=== PATIENT | female | born 1990 | race Caucasian/White ===

== ENCOUNTER 2017-06-05 16:20 | Inpatient (IN) | payer OTHER ==
[~2017-06-05] VITALS: Ht 167.6 cm; Wt 52.2 kg
--- NOTE | ~2017-06-05 | H ---
[facility] [place] [address] HISTORY AND PHYSICAL Name: ELIZABETH KAM Room #: 430-P [facility] IN M.R.#: [id number] Admission: 06/05/17 Attend Phys: Gato Chappell DO Discharge: 06/07/17 Date of : 89 Report #: [id number] THIS REPORT FOR: //name// CC: FELICIA physician/PCP Chris Chappell DATE OF SERVICE: 06/05/2017 ATTENDING PHYSICIAN: Gato Chappell DO. PRIMARY CARE PHYSICIAN: None. CHIEF COMPLAINT: Left buttock pain. HISTORY OF PRESENT ILLNESS: The patient is a 26-year-old female who came into the ER complaining of painful swollen area on her left buttock that began yesterday morning. She thought her symptoms were caused from a spider bite, although she never saw an actual spider. She said there was a black "pocket" that developed in the middle of the bite that started draining today. She said it was draining some pus and blood. The redness around the black area started spreading very rapidly today. She is not sure if she has been having any fevers, but denies any chills. The area of redness has become firm and very tender. She says to the point, she cannot even sit down on it because of the pain. She was having difficulty walking as well because of the location of the wound. She denies any history of MRSA or other skin source. She also had a rash that developed around her mouth yesterday morning. She does have a roommate who has developed a skin sore recently that they were not sure if it was a spider bite as well. PAST MEDICAL HISTORY: Depression and anxiety for which she does not take any current medications. PAST SURGICAL HISTORY: , bilateral tubal ligation, cholecystectomy and a LEEP procedure. ALLERGIES: Toradol "makes me crawl out of my skin." HOME MEDICATIONS: None. She used to take Lexapro and Lamictal, but then she has been off of these for about a year because she does not have a primary care provider. SOCIAL HISTORY: The patient smokes 1/4 of a pack of cigarettes per day. She has been smoking since she was a teenager. Denies any alcohol use. She does smoke marijuana occasionally. 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 Her last use was a few months ago. She says she no longer wants to use [facility] [address] [place] [address] HISTORY AND PHYSICAL Name: ELIZABETH KAM Room #: 430-P [facility] IN .R.#: [id number] Admission: 06/05/17 Attend Phys: Gato Chappell DO Discharge: 06/07/17 Date of : [birth year] Report #: [id number] this again. She is currently unemployed. She lives with a roommate. FAMILY HISTORY: Her father is alive with diabetes and her grandparents are diabetic, although a grandfather had throat and lung cancer and a grandmother had lung cancer. Her mother from an accidental overdose. REVIEW OF SYSTEMS: Twelve point review of systems was reviewed with the patient, otherwise negative unless stated in the HPI. PHYSICAL EXAMINATION: GENERAL: The patient is an alert female in no acute distress. VITAL SIGNS: Temperature is 36.7, heart rate 111, respirations 16, blood pressure is 110/78, oxygen 100% on room air. HEENT: PERRLA. Sclerae is nonicteric. Oral mucosa is pink and moist. She does have some scaly patches around her lips that are crusty appearing with some redness underneath. There are no open areas or drainage. NECK: Supple, no JVD noted. CARDIOVASCULAR: Normal S1, S2 with a slight 2/6 systolic murmur. RESPIRATORY: Breath sounds are clear bilaterally. No wheezing or rhonchi. Breathing is nonlabored. ABDOMEN: Soft, nontender, nondistended with positive bowel sounds. VASCULAR: No edema noted. Pedal pulses are 2+. NEUROLOGIC: The patient is alert and oriented x 3. Speech is clear. She is moving all extremities equally. No focal neuro deficits noted. SKIN: She does have multiple tattoos throughout her upper extremities. On her left gluteal area, there is an abscess in the left buttock that is indurated and exquisitely tender with palpation. The surrounding area of erythema is warm to the touch and extends into about 50% of her left gluteal region. Laterally, there is some small amount of bloody purulent drainage. LABORATORY DATA AND DIAGNOSTICS: WBC is 12.4, hemoglobin 12.2, platelets 291. Sodium 136, potassium 3.6, BUN 5, creatinine 0.6, glucose is 105. Lactate is 1.0. LFTs are within normal limits. CT of the abdomen and pelvis shows left-sided medial thigh and gluteal cellulitis without an abscess. A sinus tract or fistula is not identified on CT, but relatively insensitive for perirectal fistulas. There is gas within the bladder, this may be due to recent instrumentation or attempted catheterization of fistula cannot be excluded, correlate with clinical history or exam. ASSESSMENT AND PLAN: 1. Left gluteal abscess. This is already draining spontaneously. We will continue with vancomycin. Check wound culture and follow blood cultures. Continue with IV vancomycin, which was started in the ER. Surgery is consulted as she may possibly need an I and D. We will keep her n.p.o. after midnight due to possible surgery. 2. Anxiety and depression. This is stable. We will add Joseline monet. She has [facility] [address] [place] [address] HISTORY AND PHYSICAL Name: ELIZABETH KAM Room #: 430-P [facility] IN M.R.#: [id number] Admission: 06/05/17 Attend Phys: Gato Chappell DO Discharge: 06/07/17 Date of : 89 Report #: [id number] been off her other medications for over a year, so we will not resume them at this time. 3. Systemic inflammatory response syndrome. Lactate is normal. Her blood pressure has remained stable. Follow our cultures and continue with IV fluids. 4. Tobacco abuse. The patient has been advised to quit. We will provide a nicotine patch. 5. Deep venous thrombosis prophylaxis, place sequential compression devices. We will continue to follow the patient closely throughout the hospitalization and make changes based on clinical status. <ELECTRONICALLY SIGNED> By: MARSHALL Kay 06/07/17 0743 [id number] [id number] MARSHALL Kay /nt
--- NOTE | ~2017-06-05 | O ---
[facility] [place] [address] OPERATIVE REPORT Name: ELIZABETH KAM Room #: 430-P [facility] IN M.R.#: [id number] Admission: 06/05/17 Attend Phys: Gato Chappell DO Discharge: 06/07/17 Date of : 89 Report #: [id number] THIS REPORT FOR: //name// CC: FELICIA physician/PCP Chris Chappell DATE OF SERVICE: 06/06/2017 PREOPERATIVE DIAGNOSIS: Large left gluteal abscess (8 x 16 cm in greatest dimensions). POSTOPERATIVE DIAGNOSIS: Large left gluteal abscess (8 x 16 cm in greatest dimensions). OPERATIVE PROCEDURE: Incision and drainage with irrigation and packing of large 8 x 16 cm left gluteal abscess. SURGEON: Chris Forbes MD. STAKEHOLDER MANAGER: Anabel Osorio MS3. INDICATIONS: This 26-year-old lady reported to the emergency department that she thought that a fire ant had bitten her on the left gluteal region approximately 3-4 days ago. The erythema, pain and induration began to increase in the recent 24-48 hours. She sought medical attention. She now has a spontaneously draining 8 x 16 area of induration with abscess cavity of the left gluteal cheek. This requires incision and drainage with irrigation and packing in the operating room. DESCRIPTION OF PROCEDURE: The patient's status and condition and procedure were explained in detail to her at the bedside. She gave informed consent to proceed. She was brought to the operating room suite and had satisfactory induction of laryngeal mask general anesthesia. She was turned to a left lateral decubitus position. Sterile paint with Betadine was performed and 0.5% plain Naropin was injected circumferentially, 10 mL was utilized. A transverse radial-type incision of approximately 5 cm was then performed directly through the spontaneously draining abscess. The subcutaneous tissue was opened with blunt and sharp dissection. Finger dissection of the cavity extending inferiorly toward the left labia and ischiorectal fold was performed. Superior finger dissection of a cavity extending cephalad was also then evacuated. Aerobic and anaerobic cultures were obtained of the foul-smelling purulent drainage. Irrigation with saline was performed. The wound was then packed open with 5 yards of quarter-inch iodoform gauze soaked in the Naropin. The estimated blood loss was less than 5 mL. The patient tolerated the procedure [address] [address] OPERATIVE REPORT Name: ELIZABETH KAM Room #: 430-P [facility] IN [place].R.#: [id number] Admission: 06/05/17 Attend Phys: Gato Chappell DO Discharge: 06/07/17 Date of : 89 Report #: [id number] well. She had sterile dressings applied and she returned to the recovery room in stable and satisfactory condition. By: [id number] Chris Forbes MD, FACS /nt
--- NOTE | ~2017-06-05 | HC ---
[facility] [place] [address] CONSULTATION Name: ELIZABETH KAM Room #: 430-P [facility] IN M.R.#: [id number] Admission: 06/05/17 Attend Phys: Gato Chappell DO Discharge: 06/07/17 Date of : 89 Report #: [id number] THIS REPORT FOR: //name// CC: FELICIA physician/PCP Chris Chappell REASON FOR CONSULTATION: I was asked to evaluate concerning left gluteal abscess. HISTORY OF PRESENT ILLNESS: The patient is a 26-year-old who presents with a left buttock abscess. She states the onset was within the last 24 hours. Also, she has lesions around her mouth. She states onset 24 hours. No fever or chills. She has significant amount of tenderness. She feels that she had an insect bite initiated this issue. Did not see a spider or specific insect. The patient has a history of drug use and tobacco use. PAST MEDICAL HISTORY: Depression, anxiety, , tubal ligation, and cholecystectomy. MEDICATIONS: No known medications prior to her admission. ALLERGIES: To KETOROLAC. FAMILY HISTORY: Noncontributory. SOCIAL HISTORY: As noted above. REVIEW OF SYSTEMS: Denies any cardiopulmonary, GI, or complaints. PHYSICAL EXAMINATION: VITAL SIGNS: She is afebrile, hemodynamically stable. She had herpetic lesions involving her skin, around her mouth, nose, and lower lip area. MOUTH: Unremarkable. NECK: Supple. CHEST: Clear. HEART: Regular without murmur. ABDOMEN: Soft, nontender, no hepatosplenomegaly or mass. SKIN: Left gluteal abscess cavity evident with small amount of drainage. Very tender. Did not seem to track toward the anus. NEUROLOGIC: Normal. Multiple tattoos. LABORATORY STUDIES: Hemoglobin 10, WBCs 7.9, platelet count 246,000. Creatinine 0.6. Lactate 1. Liver function test normal. test negative. Urine drug screen pending. Urinalysis is pending. CT scan showed thickening of the tissues of the gluteus on the left. No definite abscess or fistulous tract. Small retroperitoneal periaortic lymph nodes felt likely [facility] [address] [place] [address] CONSULTATION Name: ELIZABETH KAM Room #: 430-P [facility] IN ..#: [id number] Admission: 06/05/17 Attend Phys: Gato Chappell DO Discharge: 06/07/17 Date of : 89 Report #: [id number] reactive, enlarged inguinal lymph nodes greatest on the left, scattered small air bubbles near the region of the cervix and vagina, some gas within the bladder. IMPRESSION: 1. Suspected oral herpes simplex. 2. Left gluteal abscess. 3. History of recreational drug use. PLAN: Recommend continuing broad antibiotic coverage pending culture results. We will use vancomycin and Zosyn. I have discussed with general surgery, he will obtain cultures at the time of surgery. I will screen for MRSA. Also, check bloodborne pathogens and STD screening. Add Valtrex for her oral herpes lesions. <ELECTRONICALLY SIGNED> By: Suleiman Gerard MD 06/07/17 0823 1543 1623 Suleiman Gerard MD /nt
[2017-06-05 16:22] VITALS: BP 110/78
[2017-06-05 18:16] LABS: ABSOLUTE NEUTROPHILS 9.9 thou/uL (1.4-8.2); BASOPHILS 0.6 % (0.0-2.0); EOSINOPHILS 1.2 % (0.0-3.0); HEMATOCRIT 36.2 % (37.0-47.0); HEMOGLOBIN 12.2 gm/dL (12.0-15.0); LYMPHOCYTES 12.5 % (24.0-44.0); MCH 28.6 pg (26.0-34.0); MCHC 33.8 g/dL (28.0-37.0); MCV 84.4 fL (80.0-100.0); MONOCYTES 5.4 % (1.0-8.0); PLATELET COUNT 291 thou/uL (150-400); POLYS 80.3 % (36.0-66.0); RBC 4.29 mil/uL (4.20-5.00); RDW 13.6 % (10.5-14.5); WBC 12.4 thou/uL (4.0-11.0)
[2017-06-05 18:21] LABS: MANUAL DIFF NO
[2017-06-05 18:26] LABS: CALCIUM 9.1 mg/dL (8.5-10.1); CREATININE 0.6 mg/dL (0.6-1.0); POTASSIUM 3.6 mmol/L (3.5-5.1)
[2017-06-05 18:31] LABS: ALBUMIN 3.3 g/dL (3.4-5.0); TOTAL BILIRUBIN 0.7 mg/dL (<0.1-1.0); TOTAL PROTEIN 7.9 g/dL (6.4-8.2)
[2017-06-05 19:19] VITALS: BP 103/66
[2017-06-05 19:33] VITALS: BP 94/61
[2017-06-05 20:00] VITALS: BP 94/50
[2017-06-06 05:25] VITALS: BP 89/48
[2017-06-06 07:08] LABS: HEMATOCRIT 29.9 % (37.0-47.0); MCH 29.1 pg (26.0-34.0); MCHC 34.2 g/dL (28.0-37.0); MCV 84.9 fL (80.0-100.0); RBC 3.52 mil/uL (4.20-5.00); RDW 13.7 % (10.5-14.5); WBC 7.9 thou/uL (4.0-11.0)
[2017-06-06 07:11] LABS: HEMOGLOBIN 10.2 gm/dL (12.0-15.0)
[2017-06-06 07:14] LABS: INR 1.1; PROTIME 10.8 Seconds (9.3-11.4)
[2017-06-06 07:20] LABS: CALCIUM 8.4 mg/dL (8.5-10.1); CREATININE 0.6 mg/dL (0.6-1.0); POTASSIUM 3.6 mmol/L (3.5-5.1)
[2017-06-06 08:32] VITALS: BP 92/57
[2017-06-06 15:00] VITALS: BP 101/58
[2017-06-06 17:28] VITALS: BP 113/72
[2017-06-07 07:12] LABS: HEPATITIS C VIRUS AB 8.1 (0.0-0.9); HIV ANTIBODY Non Reactive (Non Reactive)
[2017-06-08] MEDS ORDERED: VALTREX1000 MG PO (02:49)
[2017-06-08] MEDS ORDERED: BACTRIM DS TAB1 EACH PO (02:49)
[2017-06-08] MEDS ORDERED: NORCO 5-325 TA1 EACH PO (02:54)
== END 2017-06-07 02:00 | disposition left against medical advice (07) | DRG 854 ==
LOC: ER 16:20 → 4E 18:52 → EROBS 18:52 → 4E 19:43
PROVIDERS: Nurse Practitioner Acute Care; Physician Assistant; Specialist
PROC: 0J990ZZ Drainage of Buttock Subcutaneous Tissue and Fascia, Open Approach (ICD-10-PCS; principal; 2017-06-06)
DX: A41.9 Sepsis, unspecified organism (principal); L02.31 Cutaneous abscess of buttock; F32.9 Major depressive disorder, single episode, unspecified; F41.9 Anxiety disorder, unspecified; F17.210 Nicotine dependence, cigarettes, uncomplicated; F12.90 Cannabis use, unspecified, uncomplicated; Z53.21 Procedure and treatment not carried out due to patient leaving prior to being seen by health care provider; Z88.8 Allergy status to other drugs, medicaments and biological substances; Z71.6 Tobacco abuse counseling; Z90.49 Acquired absence of other specified parts of digestive tract; Z83.3 Family history of diabetes mellitus; Z80.1 Family history of malignant neoplasm of trachea, bronchus and lung; Z80.0 Family history of malignant neoplasm of digestive organs
CPT/HCPCS: 10183; 50010; 50101; 50386; 50403; 62110; 62900; 70005

== ENCOUNTER 2017-06-22 15:14 | Emergency (ER) | payer OTHER ==
[~2017-06-22] VITALS: Ht 152.4 cm; Wt 52.2 kg
[~2017-06-22 15:14] MED LIST: BACTRIM DS TAB1 EACH PO; NORCO 5-325 TA1 EACH PO; VALTREX1000 MG PO
[2017-06-22] MEDS ORDERED: AMOXICILLIN 50500 MG PO (15:35)
[2017-06-22] MEDS ORDERED: IBUPROFEN 800800 M1 PO (15:35)
== END 2017-06-22 16:19 | disposition home or self-care (01) ==
LOC: ER 15:14
DX: K04.7 Periapical abscess without sinus (principal); F32.9 Major depressive disorder, single episode, unspecified; F41.9 Anxiety disorder, unspecified; F17.210 Nicotine dependence, cigarettes, uncomplicated; F11.10 Opioid abuse, uncomplicated; Z90.49 Acquired absence of other specified parts of digestive tract; Z88.6 Allergy status to analgesic agent